=== PATIENT | male | born 1940 | race Caucasian/White ===

== ENCOUNTER 2022-07-18 03:09 | Emergency (ER) | payer MEDICARE ==
[~2022-07-18] VITALS: Ht 175.3 cm; Wt 90.7 kg
[2022-07-18 04:09] LABS: BASOPHILS % (AUTO) 0.2 % (0.0-5.0); EOSINOPHILS % (AUTO) 0.2 % (0.0-8.0); HEMATOCRIT 37.5 % (42-54); LYMPHOCYTES % (AUTO) 3.1 % (21.0-51.0); MEAN CORPUSCULAR HEMOGLOBIN 30.7 pg (27.0-33.0); MEAN CORPUSCULAR HGB CONC 33.6 g/dL (32.0-36.0); MEAN CORPUSCULAR VOLUME 91.2 fL (79-99); MONOCYTES % (AUTO) 10.3 % (3.0-13.0); PLATELET COUNT (AUTO) 108 K/uL (130-400); RED BLOOD CELL COUNT(AUTO) 4.11 MIL/uL (4.50-6.20); WHITE BLOOD COUNT (AUTO) 4.3 K/uL (4.8-10.8)
[2022-07-18 04:37] LABS: CREATININE 1.3 mg/dL (0.5-1.5)
[2022-07-18 04:41] LABS: ALBUMIN 3.5 g/dL (3.5-5.0); TOTAL PROTEIN, SERUM 6.8 g/dL (6.0-8.3)
[2022-07-18] MEDS ORDERED: ONDANSETRON 4MG INJ IVP ONE (05:00)
[2022-07-18] MEDS ORDERED: SOLU-MEDROL 125MG VIAL IVP ONE (05:00)
[2022-07-18] MEDS ORDERED: IPRATROPIUM/ALBUTEROL SULFATE 3 ML SOLUTION IH ONE (05:00)
[2022-07-18] MEDS ORDERED: ALBUTEROL 0.083% 2.5 MG/3 ML INH IH ONE (05:30)
[2022-07-18] MEDS ORDERED: MAGNESIUM 2GM PREMIX 50ML 50 ML IV SCH (05:30)
[2022-07-18 06:19] VITALS: BP 131/74
[2022-07-18] MEDS ORDERED: PRED20TA3 PO (06:46)
[2022-07-18] MEDS ORDERED: LEVO-70 PO (06:46)
[2022-07-18] MEDS ORDERED: ALBU90AE2 IH (06:47)
== END 2022-07-18 07:20 | disposition home or self-care (01) ==
LOC: EDH 03:09
DX: J44.1 Chronic obstructive pulmonary disease with (acute) exacerbation (principal); E11.9 Type 2 diabetes mellitus without complications; E78.00 Pure hypercholesterolemia, unspecified; I10 Essential (primary) hypertension; Z20.822 Contact with and (suspected) exposure to COVID-19; Z90.89 Acquired absence of other organs; Z98.890 Other specified postprocedural states
CPT/HCPCS: 99285; 96365; 71045; 96375; 87635; 84484; 80053; 83690; 85025; 87040 ×2; 87880; 87804 ×2; 83605; 36415; 93005; 94640 ×2; C9803; J3475; J2930; J2405

== ENCOUNTER → 2023-02-10 | Outpatient (CLI) | payer MEDICARE ==
[~2023-02-10] MED LIST: ALBU90AE2 IH; LEVO-70 PO; PRED20TA3 PO
== END | disposition home or self-care (01) ==
LOC: LAB 10:31
PROVIDERS: ATTEND Otolaryngology Plastic Surgery within the Head & Neck
DX: H90.3 Sensorineural hearing loss, bilateral (principal)
CPT/HCPCS: 36415; 82565; 84520

== ENCOUNTER → 2023-02-11 | Outpatient (CLI) | payer MEDICARE ==
[~2023-02-11] MED LIST changes: +GADOTERATE MEGLUMINE 10 MMOL/20 ML VIAL IV ONE
== END | disposition home or self-care (01) ==
LOC: RAH 10:23
PROVIDERS: ATTEND Otolaryngology Plastic Surgery within the Head & Neck
DX: H90.3 Sensorineural hearing loss, bilateral (principal)
CPT/HCPCS: 70553; A9575

== ENCOUNTER 2023-07-26 19:07 | Emergency (ER) | payer MEDICARE ==
[~2023-07-26] VITALS: Ht 177.8 cm; Wt 88.0 kg
[~2023-07-26 19:07] MED LIST changes: -GADOTERATE MEGLUMINE 10 MMOL/20 ML VIAL IV ONE
[2023-07-26 19:08] VITALS: BP 186/79; PULSE 71; RESP 16
== END 2023-07-26 19:29 | disposition left against medical advice (07) ==
LOC: EDH 19:07
DX: T16.1XXA Foreign body in right ear, initial encounter (principal); Z53.21 Procedure and treatment not carried out due to patient leaving prior to being seen by health care provider; W44.9XXA Unspecified foreign body entering into or through a natural orifice, initial encounter; Y93.89 Activity, other specified; Y92.89 Other specified places as the place of occurrence of the external cause; Y99.8 Other external cause status
CPT/HCPCS: 99281

== ENCOUNTER 2024-07-11 20:49 | Emergency (ER) | payer MEDICARE ==
[~2024-07-11] VITALS: Ht 175.3 cm; Wt 88.5 kg
[~2024-07-11 20:49] MED LIST changes: -ALBU90AE2 IH; +ALBU90AE3 IH
[2024-07-11] MEDS: ondanSETRON 4MG INJ IVP ONE (21:19)
[2024-07-11] MEDS: morPHINE 2 MG SYG IVP ONE (21:19)
[2024-07-11] MEDS: CYCLOBENZAPRINE HCL 10 MG TABLET PO ONE (21:19)
[2024-07-11] MEDS: dexaMETHasone SOD PHOSPHATE 4 MG/ML 1ML VIAL IVP ONE (21:20)
[2024-07-11] MEDS: morPHINE 4 MG SYG IVP ONE (22:10)
[2024-07-11 22:34] LABS: APPEARANCE,URINE CLEAR (CLEAR); BILIRUBIN,URINE NEGATIVE (NEGATIVE); GLUCOSE, URINE (UA) NEGATIVE (NEGATIVE); KETONES,URINE NEGATIVE (NEGATIVE); LEUKOCYTE ESTERASE ,URINE NEGATIVE Leu/uL (NEGATIVE); NITRATE,URINE NEGATIVE (NEGATIVE); OCCULT BLOOD,URINE NEGATIVE (NEGATIVE); PH,URINE 7.5 (5.0-8.0); PROTEIN,URINE 20 mg/dL (NEGATIVE); UROBILINOGEN,URINE 0.2 mg/dL (0.2-1.0)
[2024-07-11] MEDS: LIDOCAINE 4% ADH..PATCH TP ONE (22:40)
[2024-07-11] MEDS: ketOROlac 15MG/ML VIAL (15MG/ML) IV ONE (22:40)
[2024-07-11 22:54] LABS: ADD UA MICROSCOPIC YES; COLOR,URINE YELLOW (YELLOW)
[2024-07-11 23:01] LABS: MUCUS,URINE RARE LPF (None Seen); RBC,URINE 0-1 /HPF (0-1); WBC,URINE 0-1 /HPF (0-1)
[2024-07-11 23:25] VITALS: TEMP 98.4
[2024-07-11] MEDS ORDERED: LIDO1ADH71 TP (23:32)
[2024-07-11] MEDS ORDERED: TRAM50TA4 PO (23:32)
[2024-07-11] MEDS ORDERED: IBUP-2070 PO (23:32)
[2024-07-12] MEDS: acetaMINOPHEN 500 MG TABLET PO ONE (00:34)
[2024-07-12] MEDS: CYCLOBENZAPRINE HCL 10 MG TABLET PO ONE (00:34)
[2024-07-12] MEDS: morPHINE 2 MG SYG IVP ONE (00:34)
[2024-07-12] MEDS: hydroMORPHone 0.5 MG SYG (0.5MG/0.5ML) IVP ONE ×3 (01:57→06:28)
[2024-07-12 02:16] LABS: BASOPHILS # (AUTO) 0.02 K/uL (0.00-0.20); BASOPHILS % (AUTO) 0.3 % (0.0-5.0); EOSINOPHILS # (AUTO) 0.03 K/uL (0.00-0.70); EOSINOPHILS % (AUTO) 0.4 % (0.0-8.0); HEMATOCRIT 42.8 % (42-54); IMMATURE GRANULOCYTE ABSOLUTE 0.03 K/uL (0-1); LYMPHOCYTES # (AUTO) 0.4 K/uL (1.0-4.8); LYMPHOCYTES % (AUTO) 6.5 % (21.0-51.0); MEAN CORPUSCULAR HEMOGLOBIN 31.3 pg (27.0-33.0); MEAN CORPUSCULAR HGB CONC 35.5 g/dL (32.0-36.0); MEAN CORPUSCULAR VOLUME 88.2 fL (79-99); MONOCYTES # (AUTO) 0.1 K/uL (0.1-1.0); MONOCYTES % (AUTO) 1.9 % (3.0-13.0); NEUTROPHILS # (AUTO) 6.1 K/uL (1.8-7.7); NEUTROPHILS % (AUTO) 90.5 % (40.0-77.0); PLATELET COUNT (AUTO) 143 K/uL (130-400); RED BLOOD CELL COUNT(AUTO) 4.85 MIL/uL (4.50-6.20); RED CELL DISTRIBUTION WIDTH 11.9 % (11.0-15.5); WHITE BLOOD COUNT (AUTO) 6.8 K/uL (4.8-10.8)
[2024-07-12 02:25] LABS: POTASSIUM 3.5 mmol/L (3.5-5.1)
[2024-07-12 03:51] VITALS: BP 162/69
[2024-07-12 06:45] VITALS: PULSE 78; RESP 18; O2SAT 98
[2024-07-12] MEDS: ketOROlac 60 MG VIAL (30MG/ML) IM ONE (09:54)
[2024-07-12 10:02] LABS: APPEARANCE,URINE CLEAR (CLEAR); BILIRUBIN,URINE NEGATIVE (NEGATIVE); COLOR,URINE LIGHT-YELLOW (YELLOW); GLUCOSE, URINE (UA) 70 mg/dL (NEGATIVE); KETONES,URINE NEGATIVE (NEGATIVE); LEUKOCYTE ESTERASE ,URINE NEGATIVE Leu/uL (NEGATIVE); NITRATE,URINE NEGATIVE (NEGATIVE); OCCULT BLOOD,URINE SMALL (NEGATIVE); PROTEIN,URINE 100 mg/dL (NEGATIVE); UROBILINOGEN,URINE 0.2 mg/dL (0.2-1.0)
[2024-07-12 10:05] LABS: ADD UA MICROSCOPIC YES
[2024-07-12 10:24] LABS: MUCUS,URINE RARE LPF (None Seen)
== END 2024-07-12 10:27 | disposition home or self-care (01) ==
LOC: EDH 20:49
DX: G89.29 Other chronic pain (principal); M54.50 Low back pain, unspecified; M43.16 Spondylolisthesis, lumbar region; E11.9 Type 2 diabetes mellitus without complications; E78.00 Pure hypercholesterolemia, unspecified; I10 Essential (primary) hypertension; J44.9 Chronic obstructive pulmonary disease, unspecified; Z90.89 Acquired absence of other organs; Z98.890 Other specified postprocedural states
CPT/HCPCS: 99285; 96374; 96375 ×2; 80048; 85025; 81001 ×2; 36415; 72100; 96376 ×2; 72131; 96372; J1100; J2270 ×3; J2405; J1885 ×2; J1171 ×3